=== PATIENT | female | born 1975 | race Caucasian/White ===

== ENCOUNTER 2016-10-03 12:00 | Emergency (ER) | payer OTHER ==
[~2016-10-03 12:00] MED LIST: ADVIL,NUPRIN,M200 MG PO; ALAVERT10 MG PO; ALBUTEROL INHALER IH; ALBUTEROL SULF8.5 GM IH; ALBUTEROL17 G1 IH; ALBUTEROL17 GM IH; ATARAX,VISTARIL25 MG PO; CYANOCOBAL1000 MCG/2 IM; Chromagen, Feogen, M PO; DOXYCYCLINE HY100 MG PO; DULERA 100 MCG/13 GM IH; FEOSOL325 MG PO; FERROUS SULFAT325 MG PO; Feosol PO; IRON325 M1 PO; IRON325 MG PO; LEVOTHYROXINE200 MC1 PO; LEVOTHYROXINE50 MCG PO; Levothroid,Synthroid PO; MOTRIN IB200 MG PO; MOTRIN800 MG PO; Megace PO; Motrin PO; NAPROSYN500 MG PO; PREDNISONE10 MG PO; PREDNISONE20 MG PO; PREDNISONE50 MG PO; PROTONIX40 MG PO; Percocet 5/325,Endoc PO; SYNTHROID100 MCG PO; SYNTHROID175 MCG PO; SYNTHROID200 MCG PO; SYNTHROID300 MCG PO; SYNTHROID50 MCG PO; TESSALON PERLE100 MG PO; TYLENOL EXTRA500 MG PO; TYLENOL WITH C1 EACH PO; VENTOLIN HFA18 GM IH; VITAMIN B-12; VITAMIN B12 100MCG PO; ZITHROMAX Z-PA250 MG PO; ZOFRAN4 MG PO
== END 2016-10-03 15:46 | disposition left against medical advice (07) ==
LOC: EME 12:00
DX: R09.89 Other specified symptoms and signs involving the circulatory and respiratory systems (principal); R06.2 Wheezing; Z53.21 Procedure and treatment not carried out due to patient leaving prior to being seen by health care provider

== ENCOUNTER 2016-10-16 23:54 | Observation (INO) | payer OTHER ==
[~2016-10-16] VITALS: Ht 180.3 cm; Wt 132.0 kg
[2016-10-17 00:42] LABS: HEMATOCRIT 25.7 % (36.0-46.0); MCH 18.9 PG (29.0-34.0); MCV 67.5 FL (83-99); MEAN PLAT.VOLUME 9.8 uM^3 (9.5-12.4); PLATELET COUNT 265 K/uL (156-360); RBC DIS.WIDTH-CV 19.5 % (11.8-14.6); RBC DIS.WIDTH-SD 46.5 % (39-53); RED BLOOD COUNT 3.81 M/uL (3.80-5.20); WHITE BLOOD COUNT 7.6 K/uL (4.1-10.2)
[2016-10-17] MEDS ORDERED: PREDNISONE10 MG PO (00:45)
[2016-10-17] MEDS ORDERED: LEVOFLOXACIN500 MG PO (00:45)
[2016-10-17 00:57] LABS: CHLORIDE 107 mEq/L (99-109); POTASSIUM 4.1 mEq/L (3.7-5.4); SODIUM 137 mEq/L (136-147)
[2016-10-17 00:58] LABS: GLUCOSE 96 mg/dL (70-99)
[2016-10-17 01:00] LABS: ANION GAP 7 MEQ/L (2-14)
[2016-10-17 01:02] LABS: GFR ESTIMATE (CALCULATED) > 59 mL/min/; TROP-I INTERPRETATION NEGATIVE; TROPONIN-I < 0.01 ng/mL (0.0-0.30)
[2016-10-17 01:03] LABS: UREA NITROGEN (BUN) 13 mg/dL (9-23)
[2016-10-17 01:10] LABS: QUANTITATIVE HCG < 4.0 MIU/ML
[2016-10-17] MEDS ORDERED: VENTOLIN HFA18 GM IH (01:50)
[2016-10-17 03:35] VITALS: BP 130/60
[2016-10-17 05:07] LABS: ALKALINE PHOSPHATASE 53 IU/L (3-129); IRON 13 MCG/DL (35-150)
[2016-10-17 05:26] LABS: TOTAL BILIRUBIN 0.3 MG/DL (0.0-1.0)
[2016-10-17 07:24] LABS: TROP-I INTERPRETATION NEGATIVE; TROPONIN-I 0.01 ng/mL (0.0-0.30)
[2016-10-17 07:34] VITALS: BP 99/6
[2016-10-17 08:04] LABS: FERRITIN 2 NG/ML (10-291)
[2016-10-17 08:10] LABS: EOSINOPHIL (%) 1.2 % (0-5); EOSINOPHIL COUNT 0.1 K/uL (0-0.3); HEMATOCRIT 26.4 % (36.0-46.0); IMMATURE GRANULOCYTE (%) 0.6 % (0.0-0.7); LYMPHOCYTE COUNT 1.4 K/uL (1.0-2.8); MCH 18.7 PG (29.0-34.0); MCHC 27.7 G/DL (30.0-36.0); MCV 67.5 FL (83-99); MEAN PLAT.VOLUME 10.1 uM^3 (9.5-12.4); MONOCYTE (%) 9.1 % (3-12); MONOCYTE COUNT 0.7 K/uL (0-0.8); NEUTROPHIL (%) 68.9 % (45-76); PLAT.SUFFICIENCY ADEQUATE; PLATELET COUNT 240 K/uL (156-360); RBC DIS.WIDTH-CV 19.5 % (11.8-14.6); RED BLOOD COUNT 3.91 M/uL (3.80-5.20); WHITE BLOOD COUNT 7.2 K/uL (4.1-10.2)
[2016-10-17 09:08] LABS: LIPASE 40 U/L (1.0-51.0)
[2016-10-17 10:08] LABS: DIRECT BILIRUBIN 0.1 mg/dL (0.0-0.3); SAMPLE HEMOLYSIS CHECK 0; SAMPLE ICTERIC CHECK 0; SAMPLE LIPEMIA CHECK 0
[2016-10-17 11:07] VITALS: BP 117/81
[2016-10-17 12:51] LABS: TROP-I INTERPRETATION NEGATIVE; TROPONIN-I 0.01 ng/mL (0.0-0.30)
[2016-10-18] MEDS ORDERED: IRON325 MG PO (14:11)
[2016-10-19 13:47] LABS: POC NON-PRINT COM 1 ND
== END 2016-10-17 13:17 | disposition home or self-care (01) ==
LOC: EXP 23:54 → EME 23:54 → EDOF 10-17 02:40 → 5WEST 10-17 03:25
PROVIDERS: Hospitalist; Nurse Practitioner Family; Physician Assistant
DX: R07.89 Other chest pain (principal); D50.9 Iron deficiency anemia, unspecified; D51.9 Vitamin B12 deficiency anemia, unspecified; I10 Essential (primary) hypertension; Z91.19 Patient's noncompliance with other medical treatment and regimen; E03.9 Hypothyroidism, unspecified; K21.9 Gastro-esophageal reflux disease without esophagitis; G43.909 Migraine, unspecified, not intractable, without status migrainosus; J45.909 Unspecified asthma, uncomplicated; E66.01 Morbid (severe) obesity due to excess calories; Z68.41 Body mass index [BMI] 40.0-44.9, adult; Z87.891 Personal history of nicotine dependence; N92.1 Excessive and frequent menstruation with irregular cycle
CPT/HCPCS: 71020; 80048; 80076; 82272; 82728; 83540; 83690; 84466; 84484; 84702; 85025; 85027; 86850; 86870; 86900; 86901; 86905; 86920; 93005; 99281; 99285; G0378; J3420; J7050; Q0138

== ENCOUNTER 2016-12-11 17:24 | Emergency (ER) | payer OTHER ==
[~2016-12-11] VITALS: Ht 180.3 cm; Wt 133.5 kg
[~2016-12-11 17:24] MED LIST changes: +LEVOFLOXACIN500 MG PO
[2016-12-11] MEDS ORDERED: ERGOCALCIF50000 UNIT PO (20:33)
[2016-12-11] MEDS ORDERED: MOTRIN800 MG PO (22:13)
[2016-12-11] MEDS ORDERED: VALIUM5 MG PO (22:13)
[2016-12-11] MEDS ORDERED: ULTRACET1 TABLET PO (22:13)
[2016-12-11 22:27] VITALS: BP 161/84
== END 2016-12-11 22:28 | disposition home or self-care (01) ==
LOC: EME 17:24
DX: S16.1XXA Strain of muscle, fascia and tendon at neck level, initial encounter (principal); S29.012A Strain of muscle and tendon of back wall of thorax, initial encounter; S29.011A Strain of muscle and tendon of front wall of thorax, initial encounter; V49.40XA Driver injured in collision with unspecified motor vehicles in traffic accident, initial encounter; J45.909 Unspecified asthma, uncomplicated; E03.9 Hypothyroidism, unspecified; Z87.891 Personal history of nicotine dependence
CPT/HCPCS: 71020; 72040; 99281; 99284

== ENCOUNTER 2017-02-15 10:03 | Day surgery (SDC) | payer OTHER ==
[~2017-02-15] VITALS: Ht 180.3 cm; Wt 130.0 kg
[~2017-02-15 10:03] MED LIST changes: +ERGOCALCIF50000 UNIT PO; +SYNTHROID125 MCG PO; +ULTRACET1 TABLET PO; +VALIUM5 MG PO
[2017-02-15 10:43] VITALS: BP 125/71
[2017-02-15 16:21] LABS: HEMATOCRIT 31.2 % (36.0-46.0)
[2017-02-15 17:05] VITALS: BP 129/76
[2017-02-15 18:05] VITALS: BP 137/66
[2017-02-16] MEDS ORDERED: AYGESTIN5 MG PO (11:26)
[2017-02-20] MEDS ORDERED: CYANOCOBAL1000 MCG/2 IM (08:29)
== END 2017-02-15 18:15 | disposition home or self-care (01) ==
LOC: SDC
PROVIDERS: Obstetrics & Gynecology
PROC: 0UDB8ZX Extraction of Endometrium, Via Natural or Artificial Opening Endoscopic, Diagnostic (ICD-10-PCS; principal; 2017-02-15)
DX: N94.6 Dysmenorrhea, unspecified (principal); N87.9 Dysplasia of cervix uteri, unspecified; D50.9 Iron deficiency anemia, unspecified; J45.909 Unspecified asthma, uncomplicated; K21.9 Gastro-esophageal reflux disease without esophagitis; F41.9 Anxiety disorder, unspecified; E03.9 Hypothyroidism, unspecified; Z87.891 Personal history of nicotine dependence; Z88.0 Allergy status to penicillin; Z83.3 Family history of diabetes mellitus; Z80.49 Family history of malignant neoplasm of other genital organs; Z82.49 Family history of ischemic heart disease and other diseases of the circulatory system
CPT/HCPCS: 85014; 85018; 88305; J1170; J2250; J3010

== ENCOUNTER 2017-02-21 08:42 | Day surgery (SDC) | payer OTHER ==
[~2017-02-21] VITALS: Ht 180.3 cm; Wt 138.8 kg
[~2017-02-21 08:42] MED LIST changes: +AYGESTIN5 MG PO
[2017-02-21 09:34] LABS: EOSINOPHIL (%) 1.2 % (0-5); EOSINOPHIL COUNT 0.1 K/uL (0-0.3); HEMATOCRIT 30.5 % (36.0-46.0); IMMATURE GRANULOCYTE (%) 0.6 % (0.0-0.7); INSTRUMENT ABS NEUTROPHIL CT 3.3 K/uL; MCH 25.1 PG (29.0-34.0); MCHC 31.1 G/DL (30.0-36.0); MCV 80.7 FL (83-99); MEAN PLAT.VOLUME 11.6 uM^3 (9.5-12.4); MONOCYTE (%) 10.2 % (3-12); MONOCYTE COUNT 0.5 K/uL (0-0.8); NEUTROPHIL (%) 66.7 % (45-76); NEUTROPHIL COUNT 3.3 K/uL (1.8-6.4); PLATELET COUNT 192 K/uL (156-360); RBC DIS.WIDTH-CV 14.3 % (11.8-14.6); RBC DIS.WIDTH-SD 41.9 % (39-53); RED BLOOD COUNT 3.78 M/uL (3.80-5.20)
[2017-02-21 09:58] VITALS: BP 125/63
[2017-02-21 18:13] VITALS: BP 127/67
[2017-02-21 19:19] VITALS: BP 141/74
[2017-02-21 20:49] VITALS: BP 136/68
[2017-02-21 23:33] VITALS: BP 138/70
[2017-02-22 03:54] VITALS: BP 133/70
[2017-02-22 06:18] LABS: MCHC 31.9 G/DL (30.0-36.0); MCV 81.6 FL (83-99); MEAN PLAT.VOLUME 11.5 uM^3 (9.5-12.4); PLATELET COUNT 199 K/uL (156-360); RBC DIS.WIDTH-CV 14.5 % (11.8-14.6); RBC DIS.WIDTH-SD 42.8 % (39-53); RED BLOOD COUNT 3.31 M/uL (3.80-5.20); WHITE BLOOD COUNT 11.3 K/uL (4.1-10.2)
[2017-02-22 07:40] VITALS: BP 156/66
[2017-02-22 12:00] VITALS: BP 118/65
[2017-02-22 15:00] VITALS: BP 157/73
[2017-02-22] MEDS ORDERED: REGLAN10 MG PO (16:29)
[2017-02-22] MEDS ORDERED: ZOFRAN4 MG PO (16:29)
[2017-02-22] MEDS ORDERED: PERCOCET 5/31 TABLET PO (16:29)
[2017-02-22] MEDS ORDERED: IBUPROFEN800 MG PO (16:29)
== END 2017-02-22 16:55 | disposition home or self-care (01) ==
LOC: SDC → 2SOUTH 15:14 → 2EAST 17:52
PROVIDERS: Obstetrics & Gynecology
DX: N80.0 Endometriosis of uterus (principal); D50.9 Iron deficiency anemia, unspecified; J45.909 Unspecified asthma, uncomplicated; E03.9 Hypothyroidism, unspecified; E53.8 Deficiency of other specified B group vitamins; F41.9 Anxiety disorder, unspecified; Z87.891 Personal history of nicotine dependence; Z88.0 Allergy status to penicillin; E66.01 Morbid (severe) obesity due to excess calories; Z68.41 Body mass index [BMI] 40.0-44.9, adult
CPT/HCPCS: 85025; 85027; 88307; G0378; J0131; J0330; J1100; J1170; J1580; J2250; J2405; J2710; J7050; J7120; S0030

== ENCOUNTER 2017-02-26 11:01 | Emergency (ER) | payer OTHER ==
[~2017-02-26] VITALS: Ht 180.3 cm; Wt 126.4 kg
[~2017-02-26 11:01] MED LIST changes: +IBUPROFEN800 MG PO; +PERCOCET 5/31 TABLET PO; +REGLAN10 MG PO
[2017-02-26 12:20] LABS: HEMATOCRIT 31.1 % (36.0-46.0); MCH 24.6 PG (29.0-34.0); MCHC 30.9 G/DL (30.0-36.0); MCV 79.5 FL (83-99); MEAN PLAT.VOLUME 11.5 uM^3 (9.5-12.4); PLATELET COUNT 257 K/uL (156-360); RBC DIS.WIDTH-CV 14.5 % (11.8-14.6); RBC DIS.WIDTH-SD 41.9 % (39-53); RED BLOOD COUNT 3.91 M/uL (3.80-5.20); WHITE BLOOD COUNT 7.2 K/uL (4.1-10.2)
[2017-02-26 12:31] LABS: CHLORIDE 101 mEq/L (99-109); SODIUM 134 mEq/L (136-147)
[2017-02-26 12:34] LABS: GLUCOSE 98 mg/dL (70-99)
[2017-02-26 12:35] LABS: ANION GAP 9 MEQ/L (2-14)
[2017-02-26 12:36] LABS: TOTAL BILIRUBIN 0.8 mg/dL (0.0-1.0)
[2017-02-26 12:37] LABS: ALKALINE PHOSPHATASE 61 IU/L (3-129); GFR ESTIMATE (CALCULATED) > 59 mL/min/
[2017-02-26 12:38] LABS: UREA NITROGEN (BUN) 9 mg/dL (9-23)
[2017-02-26 13:29] LABS: SAMPLE HEMOLYSIS CHECK 0; SAMPLE ICTERIC CHECK 0; SAMPLE LIPEMIA CHECK 0
[2017-02-26 13:35] LABS: LIPASE 25 U/L (1.0-51.0)
[2017-02-26 13:52] LABS: ADD MIUA? YES; BILIRUBIN NEGATIVE; BLOOD MODERATE; COLOR YELLOW ((YELLOW)); GLUCOSE (STRIP) NEGATIVE; KETONES NEGATIVE; LEUKOCYTES TRACE; NITRITE NEGATIVE; PROTEIN (STRIP) NEGATIVE; SPECIFIC GRAVITY 1.006 (1.000-1.030); UROBILINOGEN 0.2 MG/DL (0.2-1.0)
[2017-02-26 14:20] LABS: BACTERIA RARE /HPF; EPITHELIAL CELLS 1+ /HPF; MUCUS NONE SEEN /LPF; RED BLOOD CELLS 0-5 /HPF (0-5); UCUL ADDED? NO; WHITE BLOOD CELLS 0-5 /HPF (0-5)
[2017-02-26] MEDS ORDERED: ZOFRAN ODT4 MG PO (15:14)
[2017-02-26] MEDS ORDERED: MIRALAX255 GM PO (15:14)
[2017-02-26 15:35] VITALS: BP 143/87
== END 2017-02-26 15:36 | disposition home or self-care (01) ==
LOC: EME 11:01
DX: G89.18 Other acute postprocedural pain (principal); R11.0 Nausea; K43.2 Incisional hernia without obstruction or gangrene; Z90.710 Acquired absence of both cervix and uterus; Z98.890 Other specified postprocedural states; J45.909 Unspecified asthma, uncomplicated; Z88.0 Allergy status to penicillin; Z88.5 Allergy status to narcotic agent; Z87.891 Personal history of nicotine dependence
CPT/HCPCS: 74177; 80053; 81003; 83690; 84702; 85027; 99281; 99285; J1885; J2405; J7030

== ENCOUNTER 2017-08-13 23:56 | Emergency (ER) | payer OTHER ==
[~2017-08-13] VITALS: Ht 180.3 cm; Wt 137.0 kg
[~2017-08-13 23:56] MED LIST changes: +MIRALAX255 GM PO; +ZOFRAN ODT4 MG PO
[2017-08-14 00:53] LABS: HEMATOCRIT 32.3 % (36.0-46.0); HEMOGLOBIN 9.6 G/DL (11.9-15.5); MCH 20.7 PG (29.0-34.0); MCHC 29.7 G/DL (30.0-36.0); MCV 69.6 FL (83-99); PLATELET COUNT 219 K/uL (156-360); RBC DIS.WIDTH-CV 19.7 % (11.8-14.6); RBC DIS.WIDTH-SD 47.6 % (39-53); RED BLOOD COUNT 4.64 M/uL (3.80-5.20); WHITE BLOOD COUNT 8.1 K/uL (4.1-10.2)
[2017-08-14 00:54] LABS: CHLORIDE 106 mEq/L (99-109); POTASSIUM 3.9 mEq/L (3.7-5.4); SODIUM 137 mEq/L (136-147)
[2017-08-14 00:55] LABS: GLUCOSE 90 mg/dL (70-99)
[2017-08-14 00:59] LABS: CREATININE 0.6 mg/dL (0.6-1.3); GFR ESTIMATE (CALCULATED) > 59 mL/min/
[2017-08-14 01:00] LABS: UREA NITROGEN (BUN) 11 mg/dL (9-23)
[2017-08-14 01:05] LABS: TROP-I INTERPRETATION NEGATIVE; TROPONIN-I < 0.01 ng/mL (0.0-0.30)
[2017-08-14 03:50] LABS: TROP-I INTERPRETATION NEGATIVE; TROPONIN-I < 0.01 ng/mL (0.0-0.30)
[2017-08-14] MEDS ORDERED: ANTIVERT25 MG PO (04:27)
[2017-08-14 04:36] VITALS: BP 138/76
== END 2017-08-14 04:35 | disposition home or self-care (01) ==
LOC: EME 23:56
PROVIDERS: Emergency Medicine
DX: R07.89 Other chest pain (principal); R42 Dizziness and giddiness; R60.0 Localized edema; R53.1 Weakness; H93.19 Tinnitus, unspecified ear; H53.8 Other visual disturbances; E66.9 Obesity, unspecified; Z68.41 Body mass index [BMI] 40.0-44.9, adult; E03.9 Hypothyroidism, unspecified; J45.909 Unspecified asthma, uncomplicated; Z82.49 Family history of ischemic heart disease and other diseases of the circulatory system; F17.200 Nicotine dependence, unspecified, uncomplicated
CPT/HCPCS: 71046; 80048; 81003; 83880; 84484; 85027; 85379; 87502; 93005; 99281; 99284

== ENCOUNTER 2017-11-04 08:15 | Emergency (ER) | payer OTHER ==
[~2017-11-04] VITALS: Ht 180.3 cm; Wt 135.9 kg
[~2017-11-04 08:15] MED LIST changes: +ANTIVERT25 MG PO
[2017-11-04 09:16] LABS: HEMATOCRIT 37.2 % (36.0-46.0); HEMOGLOBIN 11.3 G/DL (11.9-15.5); MCH 22.3 PG (29.0-34.0); MCHC 30.4 G/DL (30.0-36.0); MCV 73.5 FL (83-99); RBC DIS.WIDTH-CV 18.5 % (11.8-14.6); RBC DIS.WIDTH-SD 48.1 % (39-53); RED BLOOD COUNT 5.06 M/uL (3.80-5.20)
[2017-11-04 09:36] LABS: QUANTITATIVE HCG < 4.0 MIU/ML
[2017-11-04 09:53] LABS: PLAT.SUFFICIENCY ADEQUATE; PLATELET COUNT 202 K/uL (156-360)
[2017-11-04 10:55] LABS: APPEARANCE SL.HAZY ((CLEAR)); BILIRUBIN NEGATIVE; BLOOD NEGATIVE; COLOR STRAW ((YELLOW)); GLUCOSE (STRIP) NEGATIVE; KETONES NEGATIVE; LEUKOCYTES NEGATIVE; NITRITE NEGATIVE; PROTEIN (STRIP) NEGATIVE; SPECIFIC GRAVITY 1.011 (1.000-1.030); UROBILINOGEN 0.2 MG/DL (0.2-1.0)
[2017-11-04 11:01] LABS: BACTERIA RARE /HPF; EPITHELIAL CELLS 1+ /HPF; MUCUS NONE SEEN /LPF; RED BLOOD CELLS 0-5 /HPF (0-5); UCUL ADDED? NO; WHITE BLOOD CELLS 0-5 /HPF (0-5)
[2017-11-04 11:04] LABS: ALBUMIN 3.7 G/DL (3.2-4.8); CHLORIDE 104 MEQ/L (99-109); POTASSIUM 4.4 MEQ/L (3.7-5.4); SODIUM 136 MEQ/L (136-147); TOTAL BILIRUBIN 0.4 MG/DL (0.0-1.0)
[2017-11-04 11:09] LABS: ALKALINE PHOSPHATASE 73 IU/L (3-129); ALT (GPT) 51 IU/L (3-49); AST (GOT) 40 IU/L (2-34); CREATININE 0.7 MG/DL (0.6-1.3); GFR ESTIMATE (CALCULATED) > 59 mL/min/; GLUCOSE 96 mg/dL (70-99); LIPASE 48 U/L (1.0-51.0); TOTAL PROTEIN 6.4 G/DL (6.4-8.3); UREA NITROGEN (BUN) 11 mg/dL (9-23)
[2017-11-04 11:10] LABS: TROP-I INTERPRETATION NEGATIVE; TROPONIN-I < 0.01 ng/mL (0.0-0.30)
[2017-11-04 12:11] LABS: THYROTROPIN (TSH) > 100.000 MIU/L (0.4-5.5)
[2017-11-04] MEDS ORDERED: ZOFRAN4 MG PO (13:49)
[2017-11-04] MEDS ORDERED: ZITHROMAX500 MG PO (13:49)
[2017-11-04] MEDS ORDERED: SYNTHROID200 MCG PO (13:54)
[2017-11-04 14:01] VITALS: BP 115/74
== END 2017-11-04 14:02 | disposition home or self-care (01) ==
LOC: EME 08:15
DX: J02.0 Streptococcal pharyngitis (principal); E03.9 Hypothyroidism, unspecified; Z91.14 Patient's other noncompliance with medication regimen; J45.909 Unspecified asthma, uncomplicated; G43.909 Migraine, unspecified, not intractable, without status migrainosus; K21.9 Gastro-esophageal reflux disease without esophagitis; F41.9 Anxiety disorder, unspecified; D64.9 Anemia, unspecified; F17.200 Nicotine dependence, unspecified, uncomplicated; Z98.51 Tubal ligation status; R11.2 Nausea with vomiting, unspecified
CPT/HCPCS: 70360; 71046; 76705; 80053; 81003; 83690; 84443; 84484; 84702; 85027; 87651 90; 93005; 99281; 99284; C9113; J2405; J7030